=== PATIENT | female | born 1980 | race Caucasian/White ===

== ENCOUNTER 2023-03-19 12:49 | Outpatient (CLI) | payer OTHER, SELFPAY | END 2023-03-19 12:50 | disposition home or self-care (01) | PROVIDERS: PCP Obstetrics & Gynecology; Visit Provider Obstetrics & Gynecology | DX: E66.9 Obesity, unspecified (principal); N92.0 Excessive and frequent menstruation with regular cycle; Z31.41 Encounter for fertility testing | CPT/HCPCS: 83520; 84443 ==

== ENCOUNTER 2023-04-05 09:10 | Outpatient (CLI) | payer OTHER, SELFPAY | END 2023-04-05 09:11 | disposition home or self-care (01) | LOC: NFLDREF 04-08 15:28 | PROVIDERS: PCP Obstetrics & Gynecology; Referring Provider Obstetrics & Gynecology; Visit Provider Obstetrics & Gynecology | DX: Z31.41 Encounter for fertility testing (principal) | CPT/HCPCS: 84144 ==

== ENCOUNTER 2023-04-19 11:14 | Outpatient (CLI) | payer OTHER, SELFPAY | END 2023-04-19 11:15 | disposition home or self-care (01) | LOC: NFLDREF 04-21 09:37 | PROVIDERS: PCP Obstetrics & Gynecology; Referring Provider Obstetrics & Gynecology; Visit Provider Obstetrics & Gynecology | DX: Z31.41 Encounter for fertility testing (principal) | CPT/HCPCS: 82670; 83001; 83002 ==

== ENCOUNTER 2023-10-14 11:46 | Emergency (ER) | payer BC, SELFPAY ==
[2023-10-14 11:50] VITALS: BP 129/76; PULSE 83; RESP 16; TEMP 36.7; O2SAT 96; BMI 37.2
--- NOTE | 2023-10-14 12:00 | ED.LOWEXIN ---
HPI - Extremity Injury (Lower) General Time Seen by Provider: 12:00 Date Seen: 10/14/23 Chief Complaint: Extremity Pain/Injury, Lower Stated Complaint: L foot injury Time Seen by Provider: 10/14/23 11:53 Source: patient and RN notes reviewed Mode of arrival: wheelchair Limitations: no limitations History of Present Illness HPI Narrative: Charity is a 43yo female brought back in wheelchair after sustaining left foot injury this morning. She was going down steps and thought that she was on the last one but wasn't, she miss-stepped causing injury to the outer portion of her left foot. No numbness of tingling. Has been icing until the ice made the foot feel too sensitive. Took ibuprofen right away, happened about 930am today. No history of injury that she is aware of before. Had remote history of an ankle sprain in one of her ankles before, doesn't remember which side. She points to the outside of the left foot where her pain is, not really in the ankle. Not reporting other injuries, notes that it is quite painful to ambulate on it. Related Data Home Medications Medication Instructions Recorded Confirmed ibuprofen 600 mg tablet 600 mg PO 05/25/22 03/19/23 zolmitriptan 5 mg tablet 5 mg PO 05/25/22 03/19/23 Previous Rx's Medication Instructions Recorded tranexamic acid 650 mg tablet 650 mg PO TID 7 days #21 tabs 05/25/22 letrozole 2.5 mg tablet 2.5 mg PO QDAY 5 days #5 tabs 03/19/23 clomiphene citrate 50 mg tablet 50 mg PO QDAY 5 days #5 tabs 07/12/23 oxycodone 5 mg tablet 5 mg PO Q6H PRN pain #10 tabs 10/14/23 oxycodone 5 mg tablet 5 mg PO Q6H PRN pain #10 tabs 10/14/23 Allergies Allergy/AdvReac Type Severity Reaction Status Date / Time amoxicillin Allergy Intermediate Rash Verified 10/14/23 11:50 adhesive tape AdvReac Intermediate Rash Verified 10/14/23 11:50 Prolaramine Allergy Severe psych Uncoded 03/19/23 12:34 reaction Review of Systems Narrative: As per HPI. PFSH PFSH Medical History Infertility History of diet controlled gestational diabetes mellitus (GDM) ?Z86.32 - Personal history of gestational diabetes (ICD-10) Obesity (BMI 35.0-39.9 without comorbidity) ?E66.9 - Obesity, unspecified (ICD-10) Overactive bladder ?N32.81 - Overactive bladder (ICD-10) Migraine with aura ?G43.109 - Migraine with aura, not intractable, without status migrainosus (ICD-10) Insomnia ?G47.00 - Insomnia, unspecified (ICD-10) History of herpes labialis ?Z86.19 - Personal history of other infectious and parasitic diseases (ICD-10) Fibromyalgia ?M79.7 - Fibromyalgia (ICD-10) Menorrhagia ?N92.0 - Excessive and frequent menstruation with regular cycle (ICD-10) Surgical History History of wisdom tooth extraction (~2012) ?K08.409 - Partial loss of teeth, unspecified cause, unspecified class (ICD-10) Status post delivery (07/03/19) ?Z98.891 - History of uterine scar from previous surgery (ICD-10) Family History Mother CHF (congestive heart failure) Thyroid disease High blood pressure Maternal Grandfather Coronary artery disease Maternal Grandmother Thyroid disease High blood pressure Kidney disease Aunt Thyroid disease Paternal Grandmother Diabetes Social History Narrative: Cis-gender, heterosexual, woman Relationship status: . Spouse/Partner: Kel Hernandez Education: Master's degree Occupation: Certified nurse director of instruction Tobacco: Lifetime nonsmoker E-cigarettes: No Alcohol: None during . When not : 1-2 servings/month Illicit/recreational drugs: No Safety concerns at home or work: No Dietary restriction(s): No Exercise: No Smoking Status: Never smoker How often do you have a drink containing alcohol: monthly or less AUDIT-C Alcohol total score: 1 Non-prescribed substance use: denies use Exam Const: Vital Signs, click to edit/add: Vital Signs - 24 hr 10/14/23 11:50 Temperature 98.0 F Pulse Rate [Pulse Oximeter] 83 Respiratory Rate 16 Blood Pressure [Ri ght Upper Arm] 129/76 Pulse Oximetry 96 Oxygen Delivery Me thod Room Air Patient is alert, interactive, no apparent distress. She is seen in exam room for. She has the foot of the chair elevating her left lower extremity. On visualization there is no evidence of any definite ecchymosis, erythema, no loss of skin continuity. She is nontender over the medial or lateral malleolus, ankle mortise intact. Her pain is over the 5th metatarsal, actually is a bit more painful more distally than proximally over the 5th metatarsal. Neurovascular is intact, toes seem to be in good alignment. Did not do any strength testing or muscular testing at this time, will obtain x-ray to see if there is any underlying fracture 1st. Documenting provider has reviewed patient's vital signs: yes Course Course ED Course: Have reviewed with patient that we will obtain imaging of her left foot. She agrees that this is in her foot and ankle is not symptomatic on examination. We discussed fracture, peroneal brevis tendon injuries in this distribution. Will obtain x-rays of her left foot at this time. She declines any pain management at this time. Reevaluation(s) Time of Reevaluation #1: 12:18 Reevaluation #1: Have reviewed her films, see oblique slightly displaced 5th metatarsal fracture. We will page Orthopedics to discuss care and management. Time of Reevaluation #2: 12:39 Reevaluation #2: Have reviewed the plan with the patient. She may be able to borrow a knee scooter. We discussed pain management, she has taken oxycodone with a before. She has a bench in her shower that is built in. Orthopedics will be calling her tomorrow morning with a follow-up appointment. Consultations Consultation #1: Reviewed with Orthopedics, talk to Patria [place] collection systems modeler. She agrees with plan for management of nonweightbearing. She is fine if we give this patient an orthopedic boot so that she may shower but she needs to foot maintain nonweightbearing. Will recommend she get a shower chair. Patria sarmiento also recommended that she look into a knee scooter at this time, stated [employer] typically has the cheapest ones as these are not usually covered by insurance. Will provide crutches for her at this point as well as she will be nonweightbearing. Will discuss pain management with Charity. Time: 12:28 Vital Signs Vital signs: Initial Vital Signs Temperature 98.0 F 10/14/23 11:50 Temperature Source Temporal Artery Scan 10/14/23 11:50 Pulse Rate 83 10/14/23 11:50 Respiratory Rate 16 10/14/23 11:50 Blood Pressure 129/76 10/14/23 11:50 Blood Pressure Mean 93 10/14/23 11:50 Blood Pressure Position Sitting 10/14/23 11:50 Pulse Oximetry 96 10/14/23 11:50 Oxygen Delivery Method Room Air 10/14/23 11:50 Vital Signs Temperature 98.0 F 10/14/23 11:50 Pulse Rate 83 10/14/23 11:50 Respiratory Rate 16 10/14/23 11:50 Blood Pressure 129/76 10/14/23 11:50 Pulse Oximetry 96 10/14/23 11:50 Oxygen Delivery Method Room Air 10/14/23 11:50 Temperature 98.0 F 10/14/23 11:50 Pulse Rate 83 10/14/23 11:50 Respiratory Rate 16 10/14/23 11:50 Blood Pressure 129/76 10/14/23 11:50 Pulse Oximetry 96 10/14/23 11:50 Oxygen Delivery Method Room Air 10/14/23 11:50 MDM - Extremity Injury (Lower) Imaging Data XR left foot: My impression: Oblique 5th metatarsal fracture on my preliminary review. Discharge Plan Discharge Clinical Impression: Fracture of fifth metatarsal bone of left foot Qualifiers: Encounter type: initial encounter Fracture type: closed Fracture alignment: displaced Qualified Code(s): S92.352A - Displaced fracture of fifth metatarsal bone, left foot, initial encounter for closed fracture Patient Disposition: Home, Self-Care Condition: Stable Instructions: Foot Fracture in Adults (ED) Additional Instructions: Need to keep cam walker on for stabilization/immobilization, can recur removed briefly tissue shower. You must not bear weight on this extremity, use crutches for nonweightbearing. Can look into a knee scooter as we discussed. Do recommend ice and elevation as much as possible over the next few days. Tylenol 1000 mg 3 times a day baseline for pain, supplement with ibuprofen per bottle directions for additional pain management. Prescription for oxycodone is provided for severe pain or to help with sleeping. Cannot use oxycodone while working or operating machinery which includes driving. Oxycodone can be constipating, may need to use MiraLax and or senna for bowel management. The orthopedist office is supposed to call you tomorrow morning for a follow-up appointment, if you have not heard from them in a timely manner, can call [phone] to touch base. Activity Level: No Weight Bearing Prescriptions: New oxycodone 5 mg tablet 5 mg PO Q6H PRN (Reason: pain) Qty: 10 0RF oxycodone 5 mg tablet 5 mg PO Q6H PRN (Reason: pain) Qty: 10 0RF No Action zolmitriptan 5 mg tablet 5 mg PO Patient Comments: TAKE ONE TABLET BY MOUTH EVERY 2 HOURS NEEDED FOR MIGRAINE. MAX 2 TABLETS PER DAY ibuprofen 600 mg tablet 600 mg PO tranexamic acid 650 mg tablet 650 mg PO TID 7 Days Qty: 21 6RF letrozole 2.5 mg tablet 2.5 mg PO QDAY 5 Days Qty: 5 3RF Rx Instructions: Take 1 tablet PO daily on cycle days 3 and 7. clomiphene citrate 50 mg tablet 50 mg PO QDAY 5 Days Qty: 5 3RF Rx Instructions: Take 1 tablet by mouth daily on cycle days 3-7. Follow Up/Referrals: Zaira Amaya MD [Staff Physician] - Stand Alone Forms: [facility] Info Instructions
--- NOTE | 2023-10-14 12:04 | CRLHL7_ITS ---
For Patients: As a result of the Century Cures Act, medical imaging exams and procedure reports are released immediately into your electronic medical record. You may view this report before your referring provider. If you have questions, please contact your health care provider. Indication: Trauma, fall with pain. Technique: Left foot 3 views. Comparison: None. Findings/Impression: Bones: Alignment is normal. Acute oblique nondisplaced fracture in the shaft of the left 5th metatarsal. Joint spaces: Unremarkable. Soft tissues: Unremarkable. Dictated by Yusuf Mcculluogh MD @ 10/14/2023 1:17:50 PM (Electronically Signed)
--- OUTSIDE RECORDS SUMMARY | 2023-10-14 12:21 | XMS_ITS | Clinical Summary ---
Author Name Unknown Organization [facility] Address [place], [place] [address] Care Team Providers Care Pipe Fitter Helper Name Role Phone Barb Rai MD Unavailable Darlene Owen MD Primary Care Provider [phone] Allergies Active Allergy Reactions Criticality Noted Date Comments Adhesive Rash 06/01/2015 Amoxicillin Rash 06/01/2015 Blood-Group Specific Substance *Unknown 07/03/2019 Patient has a probable passive anti-D antibody. Blood products may be delayed. Draw patient 24 hours prior to transfusion. Draw one red top and two purple top tubes for all type and screen orders. Unlisted Allergen (Include Detail In Comments) Behavioral Disturbances 06/01/2015 proclarimine Medications Medication Sig Dispensed Refills Start Date End Date Status docusate (COLACE) 100 mg capsuleIndications:S /P section Take 1 capsule by mouth 2 times daily if needed for Constipation. 100 capsule 0 07/06/2019 Active valACYclovir (VALTREX) 1 gram tabletIndications:H/ O cold sores TAKE 1 TABLET BY MOUTH TWICE DAILY FOR 1 DAY 2 tablet 3 08/06/2019 Active ZOLMitriptan (ZOMIG) 5 mg tabletIndications:Mi graine with aura, not intractable, without status migrainosus Take 1 Tablet (5 mg) by mouth every 2 hours if needed for Migraine. Max of 2/day 12 Tablet 4 07/13/2023 Active ibuprofen (ADVIL; MOTRIN) 600 mg tabletIndications:Fi bromyalgia Take 1 Tablet (600 mg) by mouth every 6 hours if needed for Pain. Maximum of 3200 mg in 24 hours. 90 Tablet 1 07/13/2023 Active Active Problems Problem Noted Date Diagnosed Date Rh negative state in antepartum period 9 S/P section 07/03/2019 Fibromyalgia Insomnia Chronic tension headaches Migraine with aura Overactive bladder Overactive bladder H/O cold sores Cat allergies Resolved Problems Problem Noted Date Diagnosed Date Resolved Date Acute chorioamnionitis 07/05/201910/12 Sepsis 07/04/2019 10/12/2021 Full-term premature rupture of membranes with onset of labor more than 24 hours following rupture 07/03/2019 10/12/2021 Prolonged latent phase of labor 07/03/2019 10/12/2021 Meconium in amniotic fluid 07/03/2019 0 10/12/2021 Diet controlled gestational diabetes mellitus (GDM) in third trimester 07/03/2019 10/12/2021 Arrest of dilation, delivere d, current hospitalization 07/03/2019 10/12/2021 Advanced maternal age, primi in second trimester, antepartum 01/31/2019 10/12/2021 Encounter for scre ening for malformation using ultrasound 01/31/2019 10/12/2021 Encounters Date Type Department Care Team Description 08/14/2023 3:20 PM SOFT SUGAR OPERATOR HEAD Ancillary Procedure [facility] [address] [place] [address] 08/14/2023 Travel from Last 3 Months Immunizations Name Administration Dates Next Due COVID-19 vaccine (WAVE (Wireless Advanced Vehicle Electrification)[employer] NT[employer] 30mcg/0.3mL) PF, MDV 10/05/2020,09/14/2020 Hep B (Hepatitis B (Adult) R ecombinant Adjuvanted) 09/24/2019 Influenza A (H1N1), Inactivated 06/27/2023 Influenza Virus, Unspecified 07/08/2015 Influenza, IIV4 07/05/2022,07/11/2021 Influenza, IIV4 (=>6mos) MDV 06/23/2020,07/02/20 18,06/26/2017 Influenza,CCIIV4 PRESERV FREE 05/27/2019 Tdap 04/04/2019,09/10/2010 Family History Medical History Relation Name Comments Unknown Father Thyroid Disease Maternal Aunt Hyperlipidemia Maternal Grandfather heart disease, of ureter cancer (in his 80s) Thyroid Disease Maternal Grandmother htn Heart Disease Mother arrhythmia (on bblocker), hypothyroid, htn, ibs, kidney cysts Cancer Paternal Grandfather lung Diabetes Paternal Grandmother Diabetes Paternal Uncle Other Sister maternal 1/2 si b, JRA, depression Relation Name Status Comments Father Maternal Aunt Maternal Grandfather Maternal Grandmother Mother Paternal Grandfather Paternal Grandmother Paternal Uncle Sister Social History Tobacco Use Types Packs/Day Years Used Date Smoking Tobacco: Never Smokeless Tobacco: Never Tobacco Cessation:Counseling Given: Yes Alcohol Use Standard Drinks/Week Comments Yes 0 (1 standard drink = 0.6 oz pur e alcohol) rare PHQ-2 Answer Date Recorded PHQ-2 TOTAL SCORE 0 07/13/2023 Social Connections Answer Date Recorded Frequency of Communication with Friends and Fami ly 0 07/12/2023 Financial Resource Strain Answer Date R ecorded Difficulty of Paying Living Expenses 3 07/12/2023 Difficulty of Paying Living Expenses Not on file 07/12/2023 Food Insecurity Answer Date Recorded Worried About Running Out of Food in the Last Ye ar 1 07/12/2023 Transportation Needs Answer Date Record ed Lack of Transportation (Medical) 1 07/12/2023 Housing Stability Answer Date Recorded Unable to Pay for Housing in the Last Year 1 07/12/2023 Sex and Gender Information Value Date Recorded Sex Assigned at Female 10/11/2021 8:52 PM SOFT SUGAR OPERATOR HEAD Gender Identity Female 10/11/2021 8:52 PM SOFT SUGAR OPERATOR HEAD Sexual Orientation Straight 10/11/2021 8: 52 PM SOFT SUGAR OPERATOR HEAD Obstetrics History Para Term AB IAB SAB Ectopic Multiple Livin g Live Births 1 1 1 0 0 0 0 0 0 1 1 Date Outcome GA Total Labor Labor/2nd/3rd Weight Sex Delivery Anes PTL Shanae A1 A5 Name Cl in 07/03 Term 41w 5d 3.93 kg (8 lb 10.6 oz) M CS-LTranv Epidu ral,S familia N Lynn arredondo Complications:Failure to Pro mary in First Stage Last Filed Vital Signs Vital Sign Reading Time Taken Comments Blood Pressure 117/85 07/13/2023 8:45 AM CDT Pulse 105 07/13/2023 8:45 AM CDT Temperature 37.1 ??C (98.8 ??F) 07/13/2023 8:45 AM CD T Respiratory Rate 18 07/09/2019 11:50 AM CDT Oxygen Saturation 98% 07/13/2023 8:45 AM CDT Inhaled Oxygen Concentration - - Weight 97.5 kg (215 lb) 07/13/2023 8:45 AM CDT Height 160 cm (5' 3) 07/13/2023 8:45 AM CDT Body Mass Index 38.09 07/13/2023 8:45 AM CDT Plan of Treatment Health Maintenance Due Date Last Done Comments HIV for age 15-65 1995 Hepatitis C screening for age 18-79 1998 COVID-19 vaccine series ( season) 2023 08/18/2021, 10/05/2020, 09/14/2020 BMI (ht and wt on same day) for age 18+ 07/13/2024 07/13/2023, 10/12/2021, 05/03/2018, Additional history exists Depression screening for age 12+ 07/13/2024 07/13/2023, 10/13/2021, 10/12/2021, Additional history exists Pap test for age 21-65 10/03/2024 0 (Verified in Care Everywhere or Patient Record), 06/01/2015, 06/01/2015 Tetanus booster 04/04/2029 04/04/2019, 09/10/2010 Tdap Completed 04/04/2019, 09/10/2010 Influenza for age 9-49 Completed , 07/05/2022, 07/11/2021, Additional history exists Pneumococcal series for age 6-64 Aged Out No longer eligible based on patient's age to complete this topic Procedures Procedure Name Priority Date/Time Associated Diagnosis Comments XR MAMMO FANI BILAT SCREEN Routine 08/15/2023 7:00 AM SOFT SUGAR OPERATOR HEAD Visit for screening mammogram from Last 3 Months Results * XR MAMMO FANI BILAT SCREEN (08/15/2023 7:00 AM SOFT SUGAR OPERATOR HEAD) Anatomical Region Laterality Modality BREASTS, Breast Left, Breast Right Bilateral Mammography Impressions 08/16/2023 4:08 PM SOFT SUGAR OPERATOR HEAD ??There is no radiographic evidence for malignancy. ??Recommend annual mammograms. MAMMOGRAM ASSESSMENT: ??ACR 1 Negative PATIENTS: You will also receive a letter with your examination results in an easy to read format. ??If you have questions about your results, please contact your referring provider. Narrative 08/16/2023 4:08 PM SOFT SUGAR OPERATOR HEAD For Patients: As a result of the Cures Act, medical imaging exams and procedure reports are released immediately into your electronic medical record. You may view this report before your referring provider. If you have questions, please contact your health care provider. XR MAMMO FANI BILAT SCREEN [[id number]] CLINICAL HISTORY: ??This is an asymptomatic 43 y.o. patient. INDICATION FOR EXAM: Mammogram Screening. TECHNIQUE: CC & MLO views were obtained. ??This study was evaluated with the assistance of Computer-Aided Detection. Breast Tomosynthesis was used in interpretation. COMPARISON FILM: Yes 07/01/21 Outside Facility ?? FINDINGS: ??The breasts have scattered areas of fibroglandular density. There are no dominant masses, suspicious micro calcifications or areas of architectural distortion. Darlene Owen MD MAMMO from Last 3 Months Advance Directives Documents on File Type Date Recorded Patient Teacher Asst Expl anation Treatment Guidelines 07/03/2019 12:00 AM Latest Code Status on File Code Status Date Activated Date Inactivated Comments Full Code 07/03/2019 6:02 AM 07/09/2019 5:53 PM Care Teams Pipe Fitter Helper Relationship Specialty Start Date End Date Darlene Owen MD [address] [place] [address] PCP - General Family Practice 01/22/18 Barb Rai MD [address] [place] [id number] Family Practice 06/01/15
== END 2023-10-14 13:11 | disposition home or self-care (01) ==
PROVIDERS: Emergency Provider Family Medicine; PCP Family Medicine
DX: S92.352A Displaced fracture of fifth metatarsal bone, left foot, initial encounter for closed fracture (principal); W10.9XXA Fall (on) (from) unspecified stairs and steps, initial encounter
CPT/HCPCS: 73630; 99283; 99284

== ENCOUNTER 2024-06-14 10:12 | Outpatient (CLI) | payer OTHER, BC, SELFPAY ==
--- OUTSIDE RECORDS SUMMARY | 2024-06-29 23:42 | XMS_ITS | Clinical Summary ---
Author Organization [facility] Address [place], [place] [address] Care Team Providers Care Toe Pounder Name Role Phone Barb Rai MD Unavailable [phone] Darlene Owen MD Primary Care Provider Allergies Active Allergy Reactions Criticality Noted Date [...] Dispensed Refills Start Date End Date Status ZOLMitriptan (ZOMIG) 5 mg tabletIndications :Migraine with aura, not intractable, without status migrainosus Take 1 Tablet (5 mg) by mouth every 2 hours if needed for Migraine. Max of 2/day 12 Tablet 4 07/13/2023 Active ibuprofen (ADVIL; MOTRIN) 600 mg tabletIndications :Fibromyalgia Take 1 Tablet (600 mg) by mouth every 6 hours if needed for Pain. Maximum of 3200 mg in 24 hours. 90 Tablet 1 07/13/2023 Active meloxicam 15 mg tabletIndications :Fracture of base of fifth metatarsal bone of left foot at metaphyseal-diaph yseal junction, sequela Take 1 Tablet (15 mg) by mouth once daily. 30 Tablet 1 06/24/2024 Active docusate (COLACE) 100 mg capsuleIndication s:S/P section Take 1 capsule by mouth 2 times daily if needed for Constipation. 100 capsule 07/06/2019 06/24/2024 Discontinued (*Med complete/Reg imen complete/Lev el of care change) Active Problems Problem Noted Date Diagnosed Date [...] Encounters Date Type Department Care Team Description 06/24/2024 10:00 AM CDT [place] [facility] [place] [address] [facility] [address] [address] Virgilio Rodriguez, DPNiyah Foot Problem (Seen at [facility] on 10/14/23 DOI 10/14/23 left foot injury due to going down steps and thought she was on the last one but wasn't, miss stepped causing injury to the other portion of left foot. Xray showed fx of 5th metatarsal bone of left foot. Physical therapy did help with walk, but still feels deep bone pain. Recently had an xray of left foot on 05/21/24 which showed complete healing but still is experiencing pain on lateral side- feels like she is walking on a knife. Would like a second opini) 06/23/2024 Travel 06/18/2024 Nurse Triage [facility] [address] [place] [address] Darlene Owen MD Chest Injury; Shoulder Injury 05/21/2024 Orders Only [facility] Scanner 1 scan: (1-Ord) TC ORTHO, LEFT MORTONS NEUROMA INJECTION, 05/21/2024 from Last 3 Months Immunizations Name Administration Dates Next Due COVID-19 vaccine ([employer] 30mcg/0.3mL) PF, MDV 10/05/2020,09/14/2020 Hep B [...] Sex Assigned at Female 10/11/2021 8:52 PM ORCHID GROWER Gender Identity Female 10/11/2021 8:52 PM ORCHID GROWER Sexual Orientation Straight 10/11/2021 8: 52 PM ORCHID GROWER Obstetrics History Para Term AB IAB SAB Ectopic Multiple Livin g Live Births 1 1 1 0 0 0 0 0 0 1 1 Date Outcome GA Total Labor Labor/2nd/3rd Weight Sex Type Anes PTL Shanae A1 A5 Name Clin 019 Term 41w 5d 3.93 kg (8 lb 10.6 oz) M CS-LT ranv Epidu ral,S familia N Maria A Beth Complications:Failure to Pro mary in First Stage [...] 07/13/2023 8:45 AM CDT Plan of Treatment Upcoming Encounters Date Type Department Care Team (Late st Contact Info) Description 07/01/2024 11:15 AM CDT Ancillary Procedure [facility] [id number] [address] Health Maintenance Due Date Last Done Comments HIV for age 15-65 1995 Hepatitis C screening for age 18-79 1998 COVID-19 vaccine series ( season) 2024 08/18/2021, 10/05/2020, 09/14/2020 Influenza for age 9-49 05/11/2024 3, 07/05/2022, 07/11/2021, Additional history exists BMI (ht and wt on same day) for age 18+ 07/13/2024 07/13/2023, 10/12/2021, 05/03/2018, Additional history exists Depression screening for age 12+ 07/13/2024 07/13/2023, 10/13/2021, 10/12/2021, Additional history exists Pap test for age 21-65 10/03/2024 0 (Verified in Care Everywhere or Patient Record), 06/01/2015, 06/01/2015 Tetanus booster 04/04/2029 04/04/2019, 09/10/2010 Tdap Completed 04/04/2019, 09/10/2010 Pneumococcal series for age 6-64 Aged Out No longer eligible based on patient's age to complete this topic Procedures Procedure Name Priority Date/Time Associated Diagnosis Comments SCAN-OPERATIVE/PROC EDURE REPORT 05/21/2024 12:00 AM CDT EXTENSION WORK INSTRUCTOR THIN PREP PAP SCREEN IMAGED Routine 06/01/2015 9:00 AM CDT Screening for cervical cancer from Last 3 Months or Most Recently Relevant to Health Maintenance Results * SCAN-OPERATIVE/PROCEDURE REPORT (05/21/2024 12:00 AM CDT) Scanner OTHER * EXTENSION WORK INSTRUCTOR THIN PREP PAP SCREEN IMAGED (06/01/2015 9:00 AM CDT) EXTENSION WORK INSTRUCTOR CYTOLOGY See Anatomic Pathology case 06/06/2015 11:00 AM [facility] Specimen (specimen) (Cervical/Vagina l) Non-Blood / Unknown 06/01/2015 9:00 AM CDT 06/01/2015 10:18 AM CDT Barb Rai MD PATHOLOGY[facility] [address] [place] [address], [place] from Last 3 Months or Most Recently Relevant to Health Maintenance Advance Directives Documents on File Type Date Recorded Patient Glazing Department Supervisor Expl anation Treatment Guidelines 07/03/2019 12:00 AM * Full Code (Latest Code Status on File) Date Activated Date Inactivated Comments 07/03/2019 6:02 AM 07/09/2019 5:53 PM Care Teams Toe Pounder Relationship Specialty Start Date End Date Darlene Owen MD [address] [place] [address] PCP - General Family Practice 01/22/18 Barb Rai MD [address] [place] [address] Family Practice 06/01/15
== END 2024-06-14 10:13 | disposition home or self-care (01) ==
LOC: AMB 06-29 23:41
PROVIDERS: PCP Family Medicine; Visit Provider Emergency Medicine
DX: S29.9XXA Unspecified injury of thorax, initial encounter (principal); V43.52XA Car driver injured in collision with other type car in traffic accident, initial encounter; Y92.410 Unspecified street and highway as the place of occurrence of the external cause
CPT/HCPCS: A0998